=== PATIENT | male | born 1975 | race Two or more races ===

== ENCOUNTER 2017-08-23 18:11 | Emergency (ER) | payer SELFPAY ==
[~2017-08-23] VITALS: Ht 170.2 cm; Wt 72.6 kg
[2017-08-23] MEDS ORDERED: Lidocaine 1% 10mg/ml/Epi 0.005mg/ml 30ml vial INJ ONE (18:15)
[2017-08-23] MEDS ORDERED: Tetanus/Diptheria/Pertussis Vaccine 0.5ml Syr IM ONE (18:15)
[2017-08-23] MEDS ORDERED: Lidocaine 2% 20mg/ml/Epi 0.005mg/ml 20ml vial ONE (18:15)
[2017-08-23] MEDS ORDERED: Bacitracin Oint UD TOPIC ONE ×2 (18:50→19:00)
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
[2017-08-23] MEDS ORDERED: KEFLEX500 MG ORAL (21:24)
[2017-08-23] MEDS ORDERED: NORCO 5-325 TA1 EACH ORAL (21:24)
[2017-08-23 21:42] VITALS: BP 132/70
[2017-08-23 21:44] VITALS: BP 132/70
--- NOTE | 2017-08-24 09:16 | Diagnostic Imaging Report ---
Indication: Altered mental status Comparison: None Technique: Contiguous helical CT images through the brain was performed without intravenous contrast. Axial, coronal and sagittal reconstructions were reformatted. CT dose: Total DLP 1333 mGycm, CTDI volume 70.4 mGy Findings: There is no acute intracranial hemorrhage or infarct. No mass, mass effect or midline shift is identified. Ventricles and sulci are within normal limits. No extra-axial fluid collections are seen. Bony calvarium is intact. Mastoid air cells and visualized paranasal sinuses are clear. Impression: No acute intracranial abnormalities. The CT scanner at [facility] is accredited by the [employer] and the scans are performed using protocols designed to limit radiation exposure to as low as reasonably achievable to attain images of sufficient resolution adequate for diagnostic evaluation.
--- NOTE | 2017-08-24 09:18 | Diagnostic Imaging Report ---
Indication: PAIN Comparison: None. Findings: 3 views of the right foot shows no acute fractures or dislocations. Bony mineralization is normal. No bony destructive lesions are identified. Joint spaces are intact. There are no erosions. Soft tissues are unremarkable. Impression: No acute fracture or dislocation of the right foot
== END 2017-08-23 21:47 | disposition home or self-care (01) ==
LOC: EDBD 18:11 → EMR 18:36
DX: S11.91XA Laceration without foreign body of unspecified part of neck, initial encounter (principal); S01.81XA Laceration without foreign body of other part of head, initial encounter; S92.201A Fracture of unspecified tarsal bone(s) of right foot, initial encounter for closed fracture; S01.312A Laceration without foreign body of left ear, initial encounter; Y04.2XXA Assault by strike against or bumped into by another person, initial encounter; Y92.89 Other specified places as the place of occurrence of the external cause; Z23 Encounter for immunization; R41.82 Altered mental status, unspecified
CPT/HCPCS: 70450; 90471; 90715; 99284